=== PATIENT | male | born 1995 | race Caucasian/White ===

== ENCOUNTER 2017-04-15 22:00 | Emergency (ER) | payer OTHER ==
[~2017-04-15] VITALS: Ht 175.3 cm; Wt 90.9 kg
[~2017-04-15 22:00] MED LIST: ASPIRIN 81M81 MG/TA2 PO
[2017-04-15 23:16] VITALS: BP 163/87; TEMP 98.8
[2017-04-15 23:22] VITALS: PULSE 85
[2017-04-18] MEDS ORDERED: CEFTIN 250250 MG/TAB PO (07:34)
== END 2017-04-15 23:22 | disposition home or self-care (01) ==
LOC: COL.ER 22:00
DX: J02.9 Acute pharyngitis, unspecified (principal); F17.210 Nicotine dependence, cigarettes, uncomplicated

== ENCOUNTER 2018-04-13 11:02 | Emergency (ER) | payer OTHER ==
[~2018-04-13] VITALS: Ht 177.8 cm; Wt 102.3 kg
[~2018-04-13 11:02] MED LIST changes: +CEFTIN 250250 MG/TAB PO
[2018-04-13 11:06] VITALS: TEMP 98.2
[2018-04-13] MEDS ORDERED: AMOXICILLIN 8751 TAB PO (11:20)
[2018-04-13 12:25] VITALS: BP 141/89; PULSE 86
== END 2018-04-13 12:26 | disposition home or self-care (01) ==
LOC: COL.ER 11:02
DX: S61.232A Puncture wound without foreign body of right middle finger without damage to nail, initial encounter (principal); L03.011 Cellulitis of right finger; F17.210 Nicotine dependence, cigarettes, uncomplicated; W55.01XA Bitten by cat, initial encounter; Y92.009 Unspecified place in unspecified non-institutional (private) residence as the place of occurrence of the external cause

== ENCOUNTER 2018-04-16 11:01 | Emergency (ER) | payer OTHER ==
[~2018-04-16] VITALS: Ht 177.8 cm; Wt 102.3 kg
[~2018-04-16 11:01] MED LIST changes: +AMOXICILLIN 8751 TAB PO
[2018-04-16 11:04] VITALS: TEMP 97.8
[2018-04-16 11:38] LABS: BASO % 0.3 % (0.0-2.0); EOS # 0.1 (0.0-0.7); EOS % 1.1 % (0-4.0); GRAN % 60.4 % (42.2-75.2); HEMATOCRIT 46.7 % (42.0-52.0); LYMPH # 1.8 (1.2-3.4); LYMPH % 26.4 % (20.0-51.0); MEAN CELL VOLUME 83 fl (80.0-100.0); MEAN CORPUSCULAR HEMOGLOBIN 29 pg (27.0-31.0); MEAN CORPUSCULAR HGB CONC 34 g/dl (33.0-37.0); MEAN PLATELET VOLUME 10.6 fl (7.4-10.4); MONO # 0.8 (0.1-0.6); MONO % 11.3 % (1.7-9.3); PLATELET COUNT 223 K/mm3 (130-400); RED BLOOD COUNT 5.61 M/mm3 (4.20-5.60); REDCELL DISTRIBUTION WIDTH-CV 12.9 % (11.5-14.5)
[2018-04-16 12:32] VITALS: BP 137/72; PULSE 94
== END 2018-04-16 13:34 | disposition short-term general hospital (02) ==
LOC: COL.ER 11:01
PROVIDERS: Emergency Medicine
DX: S61.252A Open bite of right middle finger without damage to nail, initial encounter (principal); L02.511 Cutaneous abscess of right hand; L03.011 Cellulitis of right finger; W55.01XA Bitten by cat, initial encounter; Y92.009 Unspecified place in unspecified non-institutional (private) residence as the place of occurrence of the external cause
CPT/HCPCS: J0295; J7030